=== PATIENT | male | born 1960 | race Two or more races ===

== ENCOUNTER 2020-06-27 10:40 | Outpatient (CLI) | payer MEDICAID ==
[~2020-06-27] VITALS: Ht 162.6 cm; Wt 79.8 kg
[2020-06-27 13:57] VITALS: BP 152/90
--- NOTE | 2020-06-27 16:15 | Consultation ---
DATE OF CONSULTATION: 06/27/2020 CONSULTING PHYSICIAN: Schuyler Quigley MD CHIEF COMPLAINT: Referral for screening colonoscopy, chronic GERD, dysphagia, past medical history of carnes, still having problem with the symptoms. PAST MEDICAL HISTORY: Pneumonia, GERD, hypertension, diabetes type 2, constipation. PAST SURGICAL HISTORY: None. MEDICATIONS: Please see medication reconciliation list. FAMILY HISTORY: No family history of GI malignancies. SOCIAL HISTORY: Patient denies any tobacco, alcohol, or IV drug abuse. ALLERGIES: No known drug allergies. REVIEW OF SYSTEMS: Positive for constipation, dysphagia. PHYSICAL EXAMINATION: VITAL SIGNS: Temperature 97.2, blood pressure 160/90, pulse 82, respirations 20. Height is 5 feet 4 inches, weight is 176. HEENT: Normocephalic and atraumatic. Sclerae anicteric. NECK: Supple. No evidence of obvious lymphadenopathy. CARDIOVASCULAR: Regular rate and rhythm. Plus S1-S2. LUNGS: Clear to auscultation bilaterally. ABDOMEN: Positive bowel sounds. Soft and nontender. No rebound. No guarding. No peritoneal sign. EXTREMITIES: No cyanosis, no clubbing, no edema. ASSESSMENT AND PLAN: This is a 60-year-old female with complaint of solid dysphagia and also constipation, also need for screening colonoscopy. Patient was given instruction for endoscopy and colonoscopy. Risks and benefits of procedure were explained to her. Patient was given the trial of omeprazole 40 mg daily, MiraLAX 17 g at night. We will schedule for colonoscopy and endoscopy when the authorization is obtained. Schuyler Quigley M.D. DR: WINIFRED JOB#: [id number] CC:
[2020-06-30] MEDS ORDERED: METHYLDOPA500 MG ORAL (14:53)
[2020-06-30] MEDS ORDERED: METFORMIN HCL500 M1 ORAL (14:53)
== END 2020-06-27 12:40 | disposition home or self-care (01) ==
LOC: PAN 10:40 → EDSEX 10:40 → PAN 12:40
DX: K21.9 Gastro-esophageal reflux disease without esophagitis (principal); R13.10 Dysphagia, unspecified; I10 Essential (primary) hypertension; E11.9 Type 2 diabetes mellitus without complications; K59.00 Constipation, unspecified
CPT/HCPCS: G0463